=== PATIENT | male | born 1960 | race Two or more races ===

== ENCOUNTER 2022-05-29 21:28 | Emergency (ER) | payer OTHER ==
[~2022-05-29] VITALS: Ht 175.3 cm; Wt 83.9 kg
[2022-05-29] MEDS ORDERED: JANUMET 50-1,01 EACH PO (22:51)
[2022-05-29] MEDS ORDERED: ATORVASTATIN CA40 MG PO (22:52)
[2022-05-29] MEDS ORDERED: VAZALORE81 MG PO (22:53)
== END 2022-05-30 03:19 | disposition home or self-care (01) ==
LOC: ER 21:28
DX: S09.90XA Unspecified injury of head, initial encounter (principal); W18.30XA Fall on same level, unspecified, initial encounter; Y93.F1 Activity, caregiving, bathing; Y92.012 Bathroom of single-family (private) house as the place of occurrence of the external cause